=== PATIENT | male | born 2005 | race African-American/Black ===

== ENCOUNTER 2025-02-15 20:39 | Emergency (ER) | payer MEDICAID, SELFPAY ==
[2025-02-15 20:42] VITALS: BP 139/101; PULSE 74; RESP 16; TEMP 36.4; O2SAT 100
--- NOTE | 2025-02-15 22:00 | PC.NURSE ---
pt mom to rn support services he is in pain can you give him some pepto or something? this rn requested tylenol or ibuprofen from charge and was told pt npo as he has n/v/d also.
[2025-02-15 22:39] VITALS: BP 134/77; PULSE 56; RESP 18; O2SAT 99
[2025-02-16] VITALS (7 sets, daily range): BP systolic 128–132; BP diastolic 72–80; O2SAT 95–100
[2025-02-16 01:42] LABS: Hematocrit 49.0 % (42.0-52.0); Hemoglobin 16.4 g/dL (14.0-18.0); Immature Granulocyte Percent A 0.3 % (0-0.5); Lymphocytes Absolute Auto 1.48 K/mm3 (0.9-3.2); Mean Corpuscular HGB Conc 33.5 g/dl (32-36); Mean Corpuscular Hemoglobin 28.5 pg (26-34); Mean Corpuscular Volume 85.2 fl (80-100); Nucleated Red Blood Cells Absolute Auto 0.000 K/mm3 (0.0-0.012); Nucleated Red Blood Cells Perc 0.0 % (0.0-0.2); Platelet Count Result 263 k/mm3 (150-375); Red Blood Count 5.75 M/mm3 (4.6-6.20); White Blood Count 5.9 K/mm3 (4.5-10.0)
[2025-02-16 01:57] LABS: Alanine Aminotransferase 15 U/L (6-50); Albumin Level 4.9 g/dL (3.7-5.6); Alkaline Phosphatase 74 U/L (58-237); Anion Gap 15 mmol/L (4-12); Aspartate Amino Transferase 26 U/L (17-59); Bilirubin,Total 1.4 mg/dL (0.2-1.3); Blood Urea Nitrogen 18 mg/dL (8-21); Calcium 9.7 mg/dL (8.9-10.7); Carbon Dioxide 25 mmol/L (22-30); Chloride 99 mmol/L (98-107); Estimated CRCL calculation 79 ml/min; Estimated Glomerular Filt Rate > 60; Glucose 84 mg/dL (65-110); Lipase 57 U/L (23-300); Potassium 3.8 mmol/L (3.4-5.0); Sodium 139 mmol/L (134-143); Total Protein 9.0 g/dL (6.3-8.6)
[2025-02-16] MEDS: ONDANSETRON INJ 4 MG/2 ML VIAL IV PUSH (03:12)
[2025-02-16 03:14] LABS: Add Urine Microscopic? YES; Appearance Urine Cloudy (Clear); Glucose Urine UA Negative (Negative); Leukocyte Esterase Ur Negative LEU/UL (Negative); Nitrate Urine Negative (Negative); Non Pathogenic Casts 0-2; Specific Grav Ur 1.026 (1.001-1.035)
--- NOTE | 2025-02-16 03:33 | ED_ITS ---
HPI - General Adult General Chief complaint: Nausea/Vomiting/Diarrhea Stated complaint: Food Poisoning Time Seen by Provider: 02/16/25 00:48 History of Present Illness HPI narrative: This is a 19-year-old male presenting with nausea diarrhea. Symptoms started couple days ago after he ate some questionable subway. Almost immediately afterwards he developed nausea vomiting diarrhea. The 1st day was more intense and after that he has gotten steadily better. He is now able tolerate water. He came in today is he still had a couple episodes of vomiting earlier. No fevers. No significant abdominal pain. No other symptoms. Related Data Allergies Allergy/AdvReac Type Severity Reaction Status Date / Time No Known Allergies Allergy Mild Verified 02/24/10 12:04 Exam 2 Narrative: APPEARANCE: No apparent distress. Head: atraumatic. EYES: EOMI, NOSE: Atraumatic NECK: Trachea midline RESPIRATORY: No increased rate of breathing clear to auscultation CARDIOVASCULAR: RRR, no peripheral edema ABDOMINAL: Non-distended soft nontender MUSCULOSKELETAl: No obvious deformities NEURO: Alert. Moving 4/4 extremities SKIN:: Warm, dry. Normal color PSYCHIATRIC: Normal affect Course Vital Signs Vital signs: Vital Signs Temperature 97.6 F 02/15/25 20:42 Pulse Rate 74 02/15/25 20:42 Respiratory Rate 16 02/15/25 20:42 Blood Pressure 139/101 H 02/15/25 20:42 Pulse Oximetry 100 02/15/25 20:42 Oxygen Delivery Room Air 02/15/25 20:42 Temperature 97.6 F 02/15/25 20:42 Pulse Rate 56 L 02/15/25 22:39 Respiratory Rate 18 02/15/25 22:39 Blood Pressure 132/72 02/16/25 01:30 Pulse Oximetry 95 02/16/25 01:54 Oxygen Delivery Room Air 02/15/25 20:42 Medical Decision Making [facility] Narrative Medical decision making narrative: -Course: 19-year-old male presenting with several days of nausea vomiting diarrhea after eating questionable subway. His symptoms are improving. He says he feels well overall. His labs within normal limits his vital signs are stable. His abdominal exam is benign. Patient given Zofran is now able to drink water. He will be discharged with antiemetics. Given return precautions. -DDX includes but is not limited to: Food poisoning, gastroenteritis Vital Signs Vital Signs: Vital Signs Temperature 97.6 F 02/15/25 20:42 Pulse Rate 74 02/15/25 20:42 Respiratory Rate 16 02/15/25 20:42 Blood Pressure 139/101 H 02/15/25 20:42 Pulse Oximetry 100 02/15/25 20:42 Oxygen Delivery Room Air 02/15/25 20:42 Temperature 97.6 F 02/15/25 20:42 Pulse Rate 56 L 02/15/25 22:39 Respiratory Rate 18 02/15/25 22:39 Blood Pressure 132/72 02/16/25 01:30 Pulse Oximetry 95 02/16/25 01:54 Oxygen Delivery Room Air 02/15/25 20:42 Lab Data 02/16/25 01:26 02/16/25 01:26 Labs: Lab Results 02/16/25 02/16/25 Range/Units 01:26 03:03 WBC 5.9 (4.5-10.0) K/mm3 RBC 5.75 (4.6-6.20) M/mm3 Hgb 16.4 (14.0-18.0) g/dL Hct 49.0 (42.0-52.0) % MCV 85.2 (80-100) fl MCH 28.5 (26-34) pg MCHC 33.5 (32-36) g/dl RDW 12.1 (11.5-14.5) % Plt Count 263 (150-375) k/mm3 MPV 10.3 (7.4-10.4) fl Immature Gran % (Auto) 0.3 (0-0.5) % Neut % (Auto) 44.8 L (45.5-73.1) % Lymph % (Auto) 25.0 (18.3-44.2) % Keith % (Auto) 27.5 H (2.6-8.5) % Eos % (Auto) 1.9 (0-4.4) % Baso % (Auto) 0.5 (0.2-1.2) % Lymph # (Auto) 1.48 (0.9-3.2) K/mm3 Keith # (Auto) 1.6 H (0.1-0.6) K/mm3 Eos # (Auto) 0.1 (0-0.3) K/mm3 Baso # (Auto) 0.0 (0.0-0.1) K/mm3 Abs Immat Gran (auto) 0.02 (0.00-0.031) K/mm3 Absolute Neuts (auto) 2.7 (1.3-6.7) K/mm3 Absolute Nucleated RBC 0.000 (0.0-0.012) K/mm3 Nucleated RBC % 0.0 (0.0-0.2) % Sodium 139 (134-143) mmol/L Potassium 3.8 (3.4-5.0) mmol/L Chloride 99 (98-107) mmol/L Carbon Dioxide 25 (22-30) mmol/L Anion Gap 15 H (4-12) mmol/L BUN 18 (8-21) mg/dL Creatinine 1.23 (0.7-1.3) mg/dL Estim Creat Clear Calc 79 ml/min Estimated GFR > 60 (59 - ) Glucose 84 (65-110) mg/dL Calcium 9.7 (8.9-10.7) mg/dL Total Bilirubin 1.4 H (0.2-1.3) mg/dL AST 26 (17-59) U/L ALT 15 (6-50) U/L Alkaline Phosphatase 74 (58-237) U/L Total Protein 9.0 H (6.3-8.6) g/dL Albumin 4.9 (3.7-5.6) g/dL Lipase 57 (23-300) U/L Urine Color Yellow (Yellow) Urine Appearance Cloudy H (Clear) Urine pH 5.5 (5.0-9.0) Ur Specific [place] 1.026 (1.001-1.035) Urine Protein 1+ H (Negative) mg/dL Urine Glucose (UA) Negative (Negative) mg/dL Urine Ketones 2+ H (Negative) mg/dL Ur Blood (Man) Negative (Negative) Urine Nitrate Negative (Negative) Urine Bilirubin Negative (Negative) Urine Urobilinogen 0.2 (<2.0) mg/dL Leukocyte Esterase Rfl Negative (Negative) MARINA/UL Urine RBC 0-2 (0-2) /hpf Urine WBC 0-5 (0-3) /hpf Ur Squamous Epith Cells None seen (Few) /hpf Urine Bacteria None seen /hpf Urine Casts 0-2 Discharge Plan Discharge Clinical Impression: Food poisoning Patient Disposition: Home Condition: Stable Instructions: Antibiotic Form, Acute Nausea and Vomiting (ED), Acute Diarrhea (ED) Additional Instructions: Please use Zofran for nausea. Please eat a bland diet over the next several days. If you did redevelop persistent nausea vomiting, severe abdominal pain fevers he can return to the ED for re-evaluation. Patient Language: Chinese Prescriptions: New ondansetron 4 mg tablet,disintegrating 4 mg PO Q8H PRN (Reason: nausea and vomiting) Qty: 30 0RF Follow-up/Referrals: PHYSICIAN,OPTICAL INSTRUMENT SPECIALIST [Primary Care Provider, Internal Medicine]
== END 2025-02-16 04:13 | disposition home or self-care (01) ==
PROVIDERS: Physician Assistant; Emergency Provider Emergency Medicine
DX: A05.9 Bacterial foodborne intoxication, unspecified (principal)
CPT/HCPCS: 36415; 80053; 81001; 83690; 85025; 96374; 99284; J2405